=== PATIENT | female | born 1945 | race Caucasian/White ===

== ENCOUNTER 2025-01-28 11:33 | Inpatient (IN) | payer MEDICARE, OTHER, SELFPAY ==
[2025-01-16 12:45] VITALS: BMI 22.9
[2025-01-16 13:03] LABS: Hematocrit 37.9 % (37.0-47.0); Hemoglobin 12.2 g/dL (12.0-16.0); Mean Corp Hgb Conc. 32.2 g/dL (33.0-37.0); Mean Corpuscular Hgb 32.9 pg (27.0-31.0); Mean Corpuscular Volume 102.2 fL (81.0-99.0); Mean Platelet Volume 9.5 fL (7.4-10.4); Platelet Count 292 10^3/uL (130-400); Red Blood Cell Count 3.71 10^6/uL (4.20-5.40); Red Cell Dist. Width 12.9 % (11.5-14.5); White Blood Cell Count 6.9 10^3/uL (4.8-10.8)
[2025-01-16 13:34] LABS: Glycohemoglobin (HgbA1c) 5.5 % (4.0-5.6)
[2025-01-16 13:37] LABS: ALT (SGPT) 14 U/L (0-35); AST (SGOT) 21 U/L (14-36); Albumin 4.2 g/dl (3.5-5.0); Alkaline Phosphatase 144 U/L (38-126); Blood Urea Nitrogen 27 mg/dl (7-17); Calcium 9.8 mg/dl (8.4-10.2); Carbon Dioxide 26 mmol/L (22-30); Chloride 106 mmol/L (98-107); Estimated Creatinine Clearance 41 ml/min; Glucose 99 mg/dl (70-99); Potassium 4.1 mmol/L (3.5-5.1); Sodium 142 mmol/L (135-145); Total Bilirubin 0.5 mg/dl (0.2-1.3); Total Protein 6.7 g/dl (6.3-8.2); eGFR > 60.00
[2025-01-16 14:10] VITALS: BMI 22.9
[2025-01-28] VITALS (15 sets, daily range): BP systolic 114–178; BP diastolic 64–97
[2025-01-28 11:22] LABS: Glucose - Point of Care 124 mg/dl (70-99)
[2025-01-28] MEDS: NORMOSOL-R/PLASMALYTE-A 1000 IV ×2 (11:31→17:09)
[2025-01-28] MEDS: TYLENOL 650 MG PO ×4 (11:42→23:44)
[2025-01-28] MEDS: MOBIC 15 MG PO (11:42)
--- NOTE | 2025-01-28 13:44 | W.PN.UPDATE ---
Update Note
Progress Note Update
R MARCELA Dr. Musa 01/28/25
DVT ppx ASA
Hx periprosthetic L MARCELA [facility]-followed by ID-on chronic Doxycycline ppx
Pain control Ultram
--- NOTE | 2025-01-28 15:29 | W.DS.TRANS ---
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
-
Discharge Instructions:
Sleep Apnea Risk Intermediate
Discharge Diagnosis/Procedures R MARCELA Dr. Musa 01/28/25
Diet Diabetic, Carb Controlled
Activity With Walker
Driving Restrictions No driving
Bathing Restrictions OK to Shower
Other Services PT
Instructions:
Stand-Alone Forms: Total Hip/Knee Replacement D/C
Changes to Home Medications: Yes
Discharge Medications:
DC Medications w/original date entered in [facility] [facility]
amlodipine 2.5 mg tablet 2.5 mg PO DAILY 01/14/25
atenolol 50 mg tablet 50 mg PO BID 01/14/25
hydralazine 25 mg tablet 25 mg PO TID 01/14/25
levothyroxine 125 mcg tablet 125 mcg PO DAILY 01/14/25
loratadine 10 mg tablet (Claritin) 10 mg PO DAILY 01/14/25
metformin 500 mg tablet 500 mg PO BID 01/14/25
multivitamin 1 tab PO DAILY 01/14/25
dexamethasone 4 mg tablet 4 mg PO BID inflammation #6 tabs 01/16/25
gabapentin 300 mg capsule 300 mg PO HS sleep/pain #10 caps 01/16/25
meloxicam 15 mg tablet 15 mg PO DAILY anti-inflammatory #14 tabs 01/16/25
mupirocin 2 % topical ointment 1 applic topical BID infection prevention #1 tube 01/16/25
Probiotic 2 chewable tab PO DAILY 01/28/25
acetaminophen 325 mg tablet (Tylenol) 650 mg (2 x 325 mg) PO QID #1 tab 01/28/25
aspirin 325 mg tablet 325 mg PO DAILY blood clot prevention #1 tab 01/28/25
docusate sodium 100 mg capsule (Colace) 100 mg PO BID stool softner #1 cap 01/28/25
doxycycline hyclate 100 mg tablet 100 mg PO BID infection prevention #0 tabs 01/28/25
magnesium hydroxide 400 mg/5 mL oral suspension (Milk of Magnesia) 30 ml PO HS PRN Constipation #1 mL 01/28/25
sennosides 8.6 mg tablet (Senokot) 17.2 mg (2 x 8.6 mg) PO BID laxative #2 tabs 01/28/25
tramadol 50 mg tablet 50 mg PO Q6H PRN moderate-severe pain #0 tabs 01/28/25
Home Medication Changes
dexamethasone 4 mg tablet 4 mg PO BID inflammation #6 tabs 01/16/25
gabapentin 300 mg capsule 300 mg PO HS sleep/pain #10 caps 01/16/25
meloxicam 15 mg tablet 15 mg PO DAILY anti-inflammatory #14 tabs 01/16/25
mupirocin 2 % topical ointment 1 applic topical BID infection prevention #1 tube 01/16/25
Probiotic 2 chewable tab PO DAILY 01/28/25
acetaminophen 325 mg tablet (Tylenol) 650 mg (2 x 325 mg) PO QID #1 tab 01/28/25
aspirin 325 mg tablet 325 mg PO DAILY blood clot prevention #1 tab 01/28/25
docusate sodium 100 mg capsule (Colace) 100 mg PO BID stool softner #1 cap 01/28/25
magnesium hydroxide 400 mg/5 mL oral suspension (Milk of Magnesia) 30 ml PO HS PRN Constipation #1 mL 01/28/25
sennosides 8.6 mg tablet (Senokot) 17.2 mg (2 x 8.6 mg) PO BID laxative #2 tabs 01/28/25
tramadol 50 mg tablet 50 mg PO Q6H PRN moderate-severe pain #0 tabs 01/28/25
Pending Results: No
[2025-01-28 15:41] LABS: Glucose - Point of Care 141 mg/dl (70-99)
[2025-01-28] MEDS: ROXICODONE 5 MG PO (16:27)
[2025-01-28] MEDS: GLUCOPHAGE 500 MG PO (17:08)
[2025-01-28] MEDS: CLARITIN 10 MG PO (17:08)
[2025-01-28] MEDS: ASPIRIN 325 MG PO (17:08)
--- NOTE | 2025-01-28 17:36 | OR.RPT ---
Operative Report
Operative Report
Orthopaedic Surgery Operative Note
DATE OF OPERATION: 01/28/2025
PREOPERATIVE DIAGNOSES: Right hip osteoarthritis
POSTOPERATIVE DIAGNOSES: Same
OPERATION PERFORMED: Right total hip arthroplasty.
SURGEON: Tony Musa MD
ORTHOTIC AND PROSTHETIC TECHNICIAN: Shree Love PA-C who helped with patient and limb positioning and retraction
ANESTHESIA: Spinal
COMPLICATIONS: None.
ESTIMATED BLOOD LOSS: 50 mL.
DRAINS: None
SPECIMEN: None
FINDINGS: Full thickness degenerative changes to the femoral head
IMPLANTS:
Biomet G7 Acetabular Shell, cluster hole, size 50
Biomet G7 Highly Crosslinked PE Liner, neutral
Brigida Heritage stem, size 13 with extended offset with distal centralizer
DJO bone cement; small cement restrictor
Biolox Ceramic Head, size 36mm +0
INDICATIONS: The patient presented to my office with debilitating right hip pain due to osteoarthritis. We reviewed the natural history of this problem, as well as the risks, benefits, and alternatives of various treatment options. The patient
exhausted all nonoperative treatment options and wished to proceed with hip replacement surgery. The patient understood the risks which included, but were not limited to, bleeding, infection, failure to relieve pain, more pain than preop, damage to
blood vessels and nerves, need for reoperation, mechanical failure of the implants, wound healing problems, stiffness, instability, blood clot, pulmonary embolism, myocardial infarction, pneumonia, arrhythmia, CVA, and . The patient accepted
these risks and wished to proceed. All questions were answered, and informed consent was obtained.
PROCEDURE IN DETAIL: The patient was identified in the preoperative holding area. The right hip was identified as the operative site. The patient was taken in the operating room and transferred to the operative table. Spinal anesthesia was
performed. IV antibiotics and tranexamic acid were administered. The patient was placed in the lateral position with Stulberg hip positioners. Axillary roll was placed. The down leg was well padded. All bony prominences were well padded. The
operative limb was prepped and draped in the usual sterile fashion.
Time out was performed. A posterolateral approach to the hip was used. The skin incision was centered over the greater trochanter. This was taken down sharply through subcutaneous tissues. Meticulous hemostasis was achieved throughout the case with
electrocautery. We split the fascia ting in line with skin incision. I split the gluteus mario bluntly. We cauterized all crossing vessels as we split it. I palpated the sciatic nerve and made sure it was well posterior in the operative field. It
was protected throughout the case.
I performed a partial bursectomy to identify the short external rotators. The gluteus medius and minimus were identified and retracted anteriorly. I incised the piriformis tendon and conjoint tendon at their insertions. These were tagged for later
repair. I then performed a trapezoidal capsulotomy. The edges were tagged for later repair. I referenced the cut edge of the capsular flap to 2 fixed points on the greater trochanter for assistance with recreation of limb length and offset. I then
dislocated the hip posteriorly. I performed a femoral neck osteotomy approximately 5 mm above the lesser trochanter, as per preoperative templating. The femoral head measured 45 mm in outer diameter. The distance between the neck cut and the center
of the femoral head was measured to be 30mm. I placed a curve hohmann retractor over the anterior lip of the acetabulum between the labrum and the anterior hip capsule. A second retractor was placed inferiorly just distal to the transverse
acetabular ligament. Circumferential view of the acetabulum was achieved. I incised the labrum and pulvinar with electrocautery. I started with a 45 mm reamer and reamed down to the medial wall. I then sequentially reamed up to a 49mm reamer. This
gave a nice bed of bleeding bone with excellent column support anteriorly and posteriorly. I impacted the acetabular shell in approximately 40 degrees of abduction and 20 degrees of anteversion. I matched the anteversion of the transverse acetabular
ligament. I also made sure that the anterior rim of the socket was not proud of the anterior wall to minimize the chance of iliopsoas tendinitis. I confirmed the cup was well-seated. I then impacted a neutral liner and confirmed it was well seated
with the locking mechanism.
Attention was turned to the femur. Box osteotome and Charnley awe were used to open the canal. The femur was sequentially broached to size 13 which had appropriate fit and fill. A trial head was placed with extended offset neck and the hip was
reduced. Leg length and offset were checked and found to be appropriate. The hip was taken through complete range of motion and found to be stable in extension, the position of sleep, and at 90 degrees of flexion and internal rotation. Distance
between femoral head center and neck cut was 32.5mm
Trials were removed and the femoral canal was prepared with irrigation and ribbon gauze packing sequentially. A cement restrictor was placed into the femoral canal 1cm distal to the tip of the femoral stem. This was measured off the trial femoral
stem. Once the femoral canal was prepared, the cement was mixed. Once doughy in consistency, the cement was pressurized into the canal with a cement gun. The stem was then carefully inserted into the canal with care to minimize rotation or
micromotion. Excess cement was removed. Once the cement was polymerized, the joint was irrigated copiously. The acetabular component was inspected to be free of cement particles and other debris. The final head was impacted onto clean and dry
trunion. Leg length and stability were checked again and found to be acceptable. The sciatic nerve was inspected and noted to be free of tension and uninjured.
A dilute betadine soak was performed for approximately 3 minutes, and then the hip was copiously irrigated. I repaired the capsule, piriformis, and conjoint tendon with #2 Ethibond to drill holes in the greater trochanter. Local anesthetic was
injected. The fascia ting was closed with #1 PDS in running fashion. The subcutaneous tissues were closed with 2-0 PDS in running fashion. The skin was reapproximated with 3-0 Monocryl subcuticular suture. I placed a Prineo dressing followed by a
Mepilex Ag dressing. The patient awoke from anesthesia without difficulty. Sponge and instrument counts were correct x2 at the end of the case. Leg lengths were checked on the hospital bed and noted to be equal.
I was present and participated in the entire procedure. The patient was sent to the recovery room in stable condition.
Jorge L Musa MD
[2025-01-28] MEDS: TORADOL 15 MG IV (19:51)
[2025-01-28] MEDS: ANCEF 5 IV (19:51)
[2025-01-28] MEDS: COLACE 100 MG PO (19:52)
[2025-01-28] MEDS: SENOKOT 17.2 MG PO (19:52)
[2025-01-28] MEDS: TENORMIN 25 MG PO (19:52)
[2025-01-28] MEDS: DECADRON 4 MG IV (19:52)
[2025-01-28] MEDS: BACTROBAN 2% OINTMENT 1 APPLIC NASAL (19:52)
--- NOTE | 2025-01-28 21:25 | PTCARENOTE ---
Assumed care of pt at 1845. Pt oriented to room. Pt with Mepilex on right hip C/D/I. IVF infusing at 100cc/hr through right chest wall port. Pt placed on hip-posterolateral and fall precautions. Pt requested depends and this RN educated pt on not
using them to reduce skin breakdown. Pt agreeable to not use depends and ok with pads underneath pt. Bed locked and in lowest position. Care ongoing.
[2025-01-28 21:52] LABS: Glucose - Point of Care 154 mg/dl (70-99)
[2025-01-28] MEDS: NEURONTIN 300 MG PO (22:00)
[2025-01-28] MEDS: PEPCID 20 MG PO (22:01)
[2025-01-29 04:00] VITALS: BP 138/68
[2025-01-29] MEDS: ANCEF 5 IV (04:20)
[2025-01-29] MEDS: TYLENOL 650 MG PO ×3 (04:20→13:15)
[2025-01-29] MEDS: SYNTHROID 125 MCG PO (06:28)
[2025-01-29] MEDS: ULTRAM 50 MG PO ×2 (06:28→13:40)
[2025-01-29 08:02] LABS: Glucose - Point of Care 122 mg/dl (70-99)
[2025-01-29 08:03] VITALS: BP 169/78
[2025-01-29] MEDS: ASPIRIN 325 MG PO (08:33)
[2025-01-29] MEDS: BACTROBAN 2% OINTMENT 1 APPLIC NASAL (08:33)
[2025-01-29] MEDS: CLARITIN 10 MG PO (08:34)
[2025-01-29] MEDS: DECADRON 4 MG IV (08:34)
[2025-01-29] MEDS: TENORMIN 25 MG PO (08:35)
[2025-01-29] MEDS: GLUCOPHAGE 500 MG PO (08:35)
[2025-01-29] MEDS: MOBIC 15 MG PO (08:35)
[2025-01-29] MEDS: SENOKOT 17.2 MG PO (08:35)
[2025-01-29] MEDS: NORVASC 2.5 MG PO (08:35)
[2025-01-29] MEDS: TORADOL 15 MG IV (08:36)
[2025-01-29] MEDS: COLACE 100 MG PO (08:39)
[2025-01-29 10:17] VITALS: BP 162/84; PULSE 75; O2SAT 97
[2025-01-29 10:53] VITALS: BP 129/81; PULSE 67; O2SAT 96
[2025-01-29 11:00] VITALS: BP 140/79
--- NOTE | 2025-01-29 11:02 | W.PN.ORTHO ---
Today's Communication / Plan
-
d/c if mod I RW PT/OT and SBP <160
Assessment
.
Distal Motor Intact: Yes
Dressing:
Clean, dry and intact.
Assessment:
HTN-currently accelerated-requested recheck b/f dosing meds due to potential for orthostasis
Hx periprosthetic infection L M[facility]ELA [facility]-followed by ID-on chronic Doxycycline ppx
Pain control Ultram
Plan
.
Surgery / Date: R MARCELA Dr. Musa 01/28/25
DVT Prophylaxis: Aspirin
Activity:
Out of bed.
PT/OT
Discharge Plan: Home w/ Outpatient PT
Subjective
.
.:
Patient resting comfortably.
Vital Signs and Labs
.
Vital Signs and Labs:
Lab Results
01/16/25 10:57
01/16/25 10:57
Temp Pulse Resp BP Pulse Ox
97.4 F 67 18 169/78 97
01/29/25 08:03 01/29/25 08:35 01/29/25 08:03 01/29/25 08:35 01/29/25 08:30
Non-invasive Hgb result: 14.3
Physical Exam
-
HEENT: No pallor, cyanosis, or jaundice. Throat clear.
NECK: Supple. No JVD.
RESPIRATORY: Lungs clear to auscultation.
CVS: S1, S2 normal. RRR.� No murmur, rub or gallop.
ABDOMEN: Soft, non-tender. No distension. BS+/normal.
EXTREMITIES: strength equal, no calf pain with palpation
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 No focal deficits. 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
[2025-01-29 11:05] VITALS: BP 145/79
[2025-01-29 11:46] LABS: Glucose - Point of Care 129 mg/dl (70-99)
== END 2025-01-29 13:50 | disposition home or self-care (01) | DRG 470 ==
LOC: 2 SOUTH 11:33
PROVIDERS: ADMITTING PHYSICIAN Orthopaedic Surgery; FAMILY PHYSICIAN Internal Medicine
PROC: 0SR9039 Replacement of Right Hip Joint with Ceramic Synthetic Substitute, Cemented, Open Approach (ICD-10-PCS; 2025-01-28)
DX: M16.11 Unilateral primary osteoarthritis, right hip (principal); I10 Essential (primary) hypertension
CPT/HCPCS: 36415; 73502; 80053; 82962; 83036; 85027; 87070; 97110; 97116; 97166; 97530; 97535; C1713; C1776